=== PATIENT | male | born 1975 | race Caucasian/White ===

== ENCOUNTER 2019-06-18 18:04 | Emergency (ER) | payer SELFPAY ==
[~2019-06-18] VITALS: Ht 160 cm; Wt 59.0 kg
[2019-06-18 18:13] VITALS: BP 133/86
--- NOTE | 2019-06-18 18:38 | PHYS DOC ---
Past Medical History Past Medical History: No Pertinent History (MEJIA PARKER APRN) Past Surgical History: No Surgical History (MEJIA PARKER APRN) Additional Information: 1.5/ppd Alcohol Use: Occasionally Drug Use: None (MEJIA PARKER APRN) Adult General Chief Complaint Chief Complaint: TOE PROBLEM HPI HPI Patient is a 44 year old male presents to ER with right foot pain has been ongoing for several months. Patient states he might a broken his right foot 15 years ago. States that it hurts intermittently. States that it throbs from his right great toe to the middle of his foot. The pain medicine prior to arrival. Rates pain a 7 out of 10 and throbbing. (MEJIA PARKER APRN) Review of Systems Review of Systems Constitutional: Denies fever or chills [] Eyes: Denies change in visual acuity, redness, or eye pain [] HENT: Denies nasal congestion or sore throat [] Respiratory: Denies cough or shortness of breath [] Cardiovascular: No additional information not addressed in HPI [] GI: Denies abdominal pain, nausea, vomiting, bloody stools or diarrhea [] : Denies dysuria or hematuria [] Musculoskeletal: Reports R foot pain. Integument: Denies rash or skin lesions [] Neurologic: Denies headache, focal weakness or sensory changes [] Endocrine: Denies polyuria or polydipsia [] Complete systems were reviewed and found to be within normal limits, except as documented in this note. (MEJIA PARKER APRN) Current Medications Current Medications Current Medications Medications (Trade) Dose Ordered Sig/Rick Start Time Stop Time Status Last Admin Dose Admin Ketorolac Tromethamine (Toradol Im) 30 mg 1X ONCE 06/18/19 18:45 06/18/19 18:51 DC 06/18/19 19:00 30 MG (MEJIA MINOR DO) Allergies Allergies Allergies Coded Allergies Type Severity Reaction Last Updated Verified No Known Drug Allergies 06/18/19 No (MEJIA MINOR DO) Physical Exam Physical Exam Constitutional: Well developed, well nourished, no acute distress, non-toxic appearance. [] HENT: Normocephalic, atraumatic, bilateral external ears normal, oropharynx moist, no oral exudates, nose normal. [] Eyes: PERRLA, EOMI, conjunctiva normal, no discharge. [] Neck: Normal range of motion, no tenderness, supple, no stridor. [] Cardiovascular:Heart rate regular rhythm, no murmur [] Lungs & Thorax: Bilateral breath sounds clear to auscultation [] Abdomen: Bowel sounds normal, soft, no tenderness, no masses, no pulsatile masses. [] Skin: Warm, dry, no erythema, no rash. [] Back: No tenderness, no CVA tenderness. [] Extremities: Tenderness to R middle of foot to Great toe. Neurologic: Alert and oriented X 3, normal motor function, normal sensory function, no focal deficits noted. [] Psychologic: Affect normal, judgement normal, mood normal. [] (MEJIA PARKER APRN) Current Patient Data Vital Signs Vital Signs Date Time Temp Pulse Resp B/P (MAP) Pulse Ox O2 Delivery O2 Flow Rate FiO2 06/18/19 18:13 98.4 104 16 133/86 (102) 99 Room Air 98.4 (MEJIA MINOR DO) EKG EKG [] (MEJIA PARKER APRN) Radiology/Procedures Radiology/Procedures x-ray preliminary by Dr. Minor Old fracture to the 1st digit with arthritis, no obvious acute abnormality.[] (MEJIA PARKER APRN) Course & Med Decision Making Course & Med Decision Making Pertinent Labs and Imaging studies reviewed. (See chart for details) Will give Toradol and get an x-ray. Offered to put patient in boot and he declined. (MEJIA PARKER APRN) Dragon Disclaimer Dragon Disclaimer This electronic medical record was generated, in whole or in part, using a voice recognition dictation system. (MEJIA PARKER APRN) Departure Departure Impression: Primary Impression: Toe pain Disposition: HOME, SELF-CARE Condition: STABLE Referrals: NO PCP (PCP) Patient Instructions: Arthralgia, [id number] Additional Instructions: Thank you for visiting [facility]. We appreciate you trusting us with your care. If any additional problems come up don't hesitate to return to [facility] us. Please follow up with your primary care provider so they can plan additional care if needed and know about the problem that you had. If symptoms worsen come back to the Emergency Department. Any concerning symptoms that start such as chest pain, shortness of air, weakness or numbness on one side of the body, running high fevers or any other concerning symptoms return to the ER. Attending Signature Attending Signature I have reviewed the PA/CHARGEMASTER ANALYST's note and plan of care. I was available for consultation as needed during the patient's visit in the emergency department. I agree with the clinical impression, plan, and disposition. (MEJIA MINOR DO) Problem Qualifiers Primary Impression: Toe pain Laterality: right Qualified Codes: M79.674 - Pain in right toe(s) MEJIA PARKER APRN Jun 18, 2019 18:38 MEJIA MINOR DO Jun 19, 2019 21:25
[2019-06-18] MEDS ORDERED: KETOROLAC 60 MG/2 ML VIAL. IM ONE (18:45)
--- NOTE | 2019-06-18 19:48 | RAD ---
EXAM: Right foot 3 views. HISTORY: First digit pain COMPARISON: None. FINDINGS: Three views of the right foot are obtained. An ossicle along the lateral aspect of the first proximal phalangeal head suggests a subacute fracture. 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 There is moderate first metatarsophalangeal osteoarthritis. Alignment is normal. There is a small plantar calcaneal spur. IMPRESSION: 1. Subacute appearing fracture of the first proximal phalangeal head laterally. 2. Moderate first metatarsophalangeal osteoarthritis. Electronically signed by: Cody Laguna MD (06/18/2019 7:45 PM) [facility]
== END 2019-06-18 19:50 | disposition home or self-care (01) ==
LOC: ER 18:04
DX: M79.674 Pain in right toe(s) (principal); F17.200 Nicotine dependence, unspecified, uncomplicated
CPT/HCPCS: 73630; 96372; 99284; J1885